=== PATIENT | male | born 1935 | race Caucasian/White ===

== ENCOUNTER 2021-02-05 16:53 | Inpatient (IN) | payer OTHER, MEDICARE ==
[~2021-02-05] VITALS: Ht 180.3 cm; Wt 85.5 kg
[2021-02-05 17:51] LABS: Hematocrit 32.9 % (37.0-53.0); Hemoglobin 9.9 g/dL (13.5-17.5); Mean Corpuscular HGB 28.9 pg (26.0-34.0); Mean Corpuscular HGB Conc 30.1 g/dL (31.5-36.5); Mean Corpuscular Volume 96 fL (80-100); Mean Platelet Volume 11.9 fL (9.1-12.4); Platelet Count 204 K/mm3 (150-400); RDW Coefficient Variation 14.8 % (11.7-14.2); RDW Standard Deviation 52.6 fL (35.1-46.3); Red Blood Cell Count 3.43 M/mm3 (4.30-5.90); White Blood Cell Count 13.77 K/mm3 (4.00-11.30)
[2021-02-05 18:02] LABS: Source, Urine Catheter
[2021-02-05 18:09] LABS: Appearance, Urine Cloudy (Clear); Blood, Urine 5+ (Neg); Color, Urine Brown (P-Yellow); Glucose Qualitative, Urine Neg (Neg); Ketones, Urine 2+ (Neg); Leukocyte Esterase, Urine 2+ (Neg); Nitrite, Urine Pos (Neg); Protein, Urine 2+ (Neg); Specific Gravity, Urine 1.025 (1.003-1.022); Urobilinogen, Urine NORM (Normal)
[2021-02-05 18:09] LABS: International Normalized Ratio 1.2; Prothrombin Time Results 12.7 Sec (9.7-11.5)
[2021-02-05 18:19] LABS: Albumin/Globulin Ratio 0.7 (0.8-1.8); BAND PERCENT MAN 4 % (0-8); BASOPHILS PERCENT MAN 0 % (0-2); Bilirubin, Total 0.2 mg/dL (0.1-1.0); Bun/Creatinine Ratio 11.8 (12.0-20.0); Calcium, Blood 6.6 mg/dL (8.5-10.1); Creatinine, Blood 8.65 mg/dL (0.60-1.20); EOSINOPHILS PERCENT MAN 0 % (0-6); Globulin, Blood 2.8 g/dL (2.2-4.0); LYMPHOCYTES ABSOLUTE MAN 2.06 K/mm3 (0.84-5.20); LYMPHOCYTES PERCENT MAN 15 % (21-46); METAMYELOCYTE ABSOLUTE MAN 0.27 K/mm3 (0.00-0.00); METAMYELOCYTE PERCENT MAN 2 % (0-0); MONOCYTES ABSOLUTE MAN 0.68 K/mm3 (0.16-1.47); MONOCYTES PERCENT MAN 5 % (4-13); NEUTROPHILS ABSOLUTE MAN 10.74 K/mm3 (1.96-9.15); Potassium, Blood 3.2 mmol/L (3.5-5.5); SEG NEUTROPHILS PERCENT MAN 74 % (41-73); TOTAL CELLS COUNTED 100; Total Protein, Blood 4.8 g/dL (6.4-8.2); Troponin I 0.149 ng/mL (0.000-0.040)
[2021-02-05 18:32] LABS: Bilirubin, Urine 1+ (Neg)
[2021-02-05 18:34] LABS: Bacteria Many /hpf
[2021-02-05 18:37] LABS: Amorphous Light (0-Heavy); Squamous Epithelial Cells Rare /hpf (Few)
[2021-02-05] MEDS ORDERED: SITA100T2 PO (19:24)
[2021-02-05] MEDS ORDERED: TAMSULOSIN HCL0.4 M1 PO (19:25)
[2021-02-05 20:19] LABS: PCO2 Arterial 40.8 mmHg (35-45); PO2 Arterial 101 mmHg (80-100); pH Blood Arterial <6.80 (7.35-7.45)
[2021-02-05 20:22] LABS: Anion Gap 32 mmol/L (6-16); Blood Urea Nitrogen 101 mg/dL (8-24); Bun/Creatinine Ratio 11.6 (12.0-20.0); CO2, Blood 4 mmol/L (21-32); Calcium, Blood 6.6 mg/dL (8.5-10.1); Chloride, Blood 114 mmol/L (98-108); Creatinine, Blood 8.67 mg/dL (0.60-1.20); Glomerular Filtration Rate 6 (60-); Glucose, Blood 68 mg/dL (70-99); Phosphorus, Blood 11.8 mg/dL (2.5-4.9); Potassium, Blood 3.2 mmol/L (3.5-5.5); Sodium, Blood 150 mmol/L (136-145)
--- NOTE | 2021-02-05 21:00 | NUR ---
ASSUMED PT CARE FROM ED AT 2034 PT ARRIVED INTUBATED AND ON LIGHT SEDATION. VENT SETTINGS AC 16, VT 500, PEEP 5, FIO2 80%, OXYGEN SATURATIONS 94%. RESP RATE 16. PROPOFOL AT 10MCG/KG/MIN, WHICH WAS TITRATED OFF D/T PT BEING UNRESPONSIVE. LEVOPHED AT 10MCG/MIN WITH SBP 70'S; THEREFORE, TITRATED LEVOPHED UP TO 15MCG/MIN. PT PLACED ON THE HACKLER DOLL WIGS; NSR WITH HR 60'S. BP'S CONTINUED TO TREND DOWN; THEREFORE, LEVOPHED TITRATED UP, WHICH IS CURRENTLY AT MAX OF 30MCG/MIN. ORDERS OBTAINED FOR VASOPRESSIN GTT, ANOTHER LITER OF NS BOLUSED, AND ALBUMIN 25GM FROM DR. CHAO. DR. CHAO AT BEDSIDE SPEAKING WITH WHO CONSENTS TO CENTRAL LINE BEING PLACED. DNR STATUS CONFIRMED BY . OG HAS COFFEE GROUND OUTPUT NOTED TO CANISTER; THEREFORE, PROTONIX GTT INFUSING AT 10MLS/HR. BICARB GTT AT 200ML/HR. ONCE BOLUSES ARE COMPLETE, LR TO BE INFUSING AT 100MLS/HR. PT REMAINS OFF SEDATION AND CONTINUES TO NOT BE RESPONSIVE AT THIS TIME; THEREFORE, RESTRAINTS HAVE NOT BEEN PLACED AT THIS TIME. WILL CONTINUE TO MONITOR.
--- NOTE | 2021-02-05 21:34 | NUR ---
DR. CHAO AT BEDSIDE PLACING CENTRAL LINE ATTEMPTING RIGHT SUBCLAVIAN VEIN AT THIS TIME.
[2021-02-05 21:42] LABS: Albumin, Blood 2.2 g/dL (3.4-5.0); Anion Gap 37 mmol/L (6-16); Blood Urea Nitrogen 129 mg/dL (8-24); Bun/Creatinine Ratio 11.3 (12.0-20.0); CO2, Blood 4 mmol/L (21-32); Chloride, Blood 104 mmol/L (98-108); Glomerular Filtration Rate 5 (60-); Glucose, Blood 87 mg/dL (70-99); Potassium, Blood 4.3 mmol/L (3.5-5.5); Sodium, Blood 145 mmol/L (136-145)
[2021-02-05 21:45] LABS: Influenza A, PCR NEGATIVE (NEGATIVE); Influenza B, PCR NEGATIVE (NEGATIVE); Resp Syncytial Virus, PCR NEGATIVE (NEGATIVE); SARS-Cov-2 (COVID-19) PCR, MMC NEGATIVE (NEGATIVE)
[2021-02-05 21:46] LABS: Calcium, Blood 8.9 mg/dL (8.5-10.1); Phosphorus, Blood 16.1 mg/dL (2.5-4.9)
[2021-02-05] MEDS ORDERED: METF500 PO (21:50)
[2021-02-05] MEDS ORDERED: ZOCOR20 MG PO (21:50)
[2021-02-05] MEDS ORDERED: METO50 PO (21:50)
[2021-02-05] MEDS ORDERED: LISI5 PO (21:50)
[2021-02-05] MEDS ORDERED: CILO100 PO (21:51)
[2021-02-06 00:02] LABS: Albumin, Blood 2.9 g/dL (3.4-5.0); Anion Gap 32 mmol/L (6-16); Blood Urea Nitrogen 117 mg/dL (8-24); Bun/Creatinine Ratio 12.1 (12.0-20.0); CO2, Blood 7 mmol/L (21-32); Chloride, Blood 103 mmol/L (98-108); Creatinine, Blood 9.68 mg/dL (0.60-1.20); Glomerular Filtration Rate 6 (60-); Glucose, Blood 194 mg/dL (70-99); Potassium, Blood 4.5 mmol/L (3.5-5.5); Sodium, Blood 142 mmol/L (136-145); Troponin I 0.971 ng/mL (0.000-0.040)
[2021-02-06 03:39] LABS: Hematocrit 30.9 % (37.0-53.0); Hemoglobin 8.8 g/dL (13.5-17.5); Mean Corpuscular HGB 27.9 pg (26.0-34.0); Mean Corpuscular HGB Conc 28.5 g/dL (31.5-36.5); Mean Corpuscular Volume 98 fL (80-100); Mean Platelet Volume 11.7 fL (9.1-12.4); Platelet Count 151 K/mm3 (150-400); RDW Coefficient Variation 14.8 % (11.7-14.2); RDW Standard Deviation 53.5 fL (35.1-46.3); Red Blood Cell Count 3.15 M/mm3 (4.30-5.90); White Blood Cell Count 11.42 K/mm3 (4.00-11.30)
--- NOTE | 2021-02-06 03:42 | NUR ---
PUSHED EPI D/T SBP 60'S EPI REQUIREMENTS WENT FROM 3MCG/MIN TO 15MCG/MIN WITH A RATE OF 450MLS/HR IN A SHORT AMOUNT OF TIME; THEREFORE, EPI WENT DRY BEFORE PHARMACY WAS ABLE TO SEND ANOTHER BAG AFTER IT WAS REQUESTED. HR 80'S-90'S. SBP 150'S AFTER EPI PUSH GIVEN.
--- NOTE | 2021-02-06 04:25 | NUR ---
REASSESSMENT PT IS CURRENTLY MAXED ON ALL PRESSORS; EPI AT 20MCG/MIN, LEVOPHED AT 30MCG/MIN, AND VASOPRESSIN AT 0.04 UNITS/MIN. PT REMAINS WITH NO URINE OUTPUT. LUNGS ARE BEGINNING TO SOUND WORSE WITH INCREASED CRACKES, AND COARSE RHONCHI. PEEP INCREASED TO 10; HOWEVER, OXYGEN SATURATIONS ARE BACK TO 89%. CALL PLACED TO DR. CHAO WITH ORDERS TO INCREASE PEEP TO 12 AND TO CALL THE WITH AN UPDATE.
--- NOTE | 2021-02-06 04:44 | NUR ---
CALL TO SPOKE WITH AND INFORMED HER THAT PT WASN'T DOING WELL EVEN WITH ALL VASOPRESSORS MAXED OUT. STATED SHE WOULD BE ON HER WAY IN AND BE HERE IN ABOUT 30 MINUTES OR SO.
[2021-02-06 04:53] LABS: Anion Gap 33 mmol/L (6-16); Blood Urea Nitrogen 114 mg/dL (8-24); Bun/Creatinine Ratio 11.9 (12.0-20.0); CO2, Blood 8 mmol/L (21-32); Calcium, Blood 7.4 mg/dL (8.5-10.1); Chloride, Blood 96 mmol/L (98-108); Glomerular Filtration Rate 6 (60-); Glucose, Blood 450 mg/dL (70-99); Phosphorus, Blood 13.6 mg/dL (2.5-4.9); Potassium, Blood 4.5 mmol/L (3.5-5.5); Sodium, Blood 137 mmol/L (136-145)
--- NOTE | 2021-02-06 05:22 | NUR ---
END OF SHIFT SUMMARY HR 80'S; SBP 90'S WITH MAP'S >65 AT THIS TIME. PT REMAINS MAXED ON ALL VASOPRESSORS; EPI, LEVOPHED, AND VASOPRESSIN. VENT SETTINGS REMAIN WITH AC 16, VT 500, PEEP 10, FIO2 100%, RESP RATE 16, OXYGEN SATURATION 87%. PT REMAINS OFF ALL SEDATION AND REMAINS UNRESPONSIVE. PUPILS ARE 4MM AND UNREACTIVE TO LIGHT; NO MOVEMENT. PT REMAINS OUT OF RESTRAINTS. NO URINE OUTPUT. IS AT BEDSIDE AT THIS TIME. WILL CONTINUE TO MONITOR UNTIL REPORT IS HANDED OFF TO ONCOMING RN.
[2021-02-06 05:58] LABS: EOSINOPHILS PERCENT MAN 0 % (0-6); TOTAL CELLS COUNTED 100
--- NOTE | 2021-02-06 06:00 | NUR ---
PASTORAL CARE REQUESTED A MARINE ENGINEERING TECHNICIANS IN ORDER TO READ PT'S LAST RITES. TOÑA WELLER CALLED [facility] IN WHICH THEY WERE WILLING TO HAVE THEIR SKIVER OPERATOR COME IN TO READ LAST RITES. OXYGEN SATURATIONS ARE 80% AT THIS TIME. HR 60-70'S. SBP 60'S.
[2021-02-06 06:04] LABS: BAND PERCENT MAN 10 % (0-8); BASOPHILS ABSOLUTE MAN 0.11 K/mm3 (0.00-0.23); BASOPHILS PERCENT MAN 1 % (0-2); LYMPHOCYTES ABSOLUTE MAN 2.39 K/mm3 (0.84-5.20); LYMPHOCYTES PERCENT MAN 21 % (21-46); MONOCYTES ABSOLUTE MAN 0.22 K/mm3 (0.16-1.47); MONOCYTES PERCENT MAN 2 % (4-13); NEUTROPHILS ABSOLUTE MAN 7.65 K/mm3 (1.96-9.15); SEG NEUTROPHILS PERCENT MAN 57 % (41-73)
[2021-02-06 06:05] LABS: MYELOCYTE ABSOLUTE MAN 1.02 K/mm3 (0.00-0.00); MYELOCYTE PERCENT MAN 9 % (0-0)
--- NOTE | 2021-02-06 06:16 | NUR ---
IS AT BEDSIDE WITH PT AND
--- NOTE | 2021-02-06 06:28 | NUR ---
Spiritual care visit attempted. Upon receiving a call-back from RN Electronic Equipment Maint Tech Nancy, I come into ICU to find that a is already in patient's rm. Spiritual care given by .
--- NOTE | 2021-02-06 07:15 | NUR ---
ASSUMED CARE BEDSIDE REPORT RECIEVED. PT IS INTUBATED, NOT SEDATED. PT IS UNRESPONSIVE WITH NO PURPOSEFUL MOVEMENT. NO COUGH OR GAG NOTED. VENT SETTINGS AC 16, TV 500, PEEP 10, FIO2 100%. PT HR 60'S, SBP 70'S, SPO2 80'S. CENTRAL LINE IN PLACE WITH LEVOPHED AT 30 MCG/MIN AND EPI AT 20 MCG/MIN. SEE FLOW SHEET FOR OTHER GTT TITRATIONS. OGT IN PLACE TO LIS WITH COFFEE GROUND OUTPUT NOTED. SPARKS IN PLACE WITH MINIMAL TO NO URINE OUTPUT NOTED. PT KNEES/LEGS ARE MOTTLED. PT SPOUSE AT BEDSIDE. WILL CONTINUE TO MONITOR.
[2021-02-06 09:00] LABS: Albumin, Blood 2.8 g/dL (3.4-5.0); Anion Gap 35 mmol/L (6-16); Blood Urea Nitrogen 110 mg/dL (8-24); Bun/Creatinine Ratio 12.8 (12.0-20.0); CO2, Blood 6 mmol/L (21-32); Calcium, Blood 6.7 mg/dL (8.5-10.1); Chloride, Blood 89 mmol/L (98-108); Creatinine, Blood 8.62 mg/dL (0.60-1.20); Glomerular Filtration Rate 6 (60-); Glucose, Blood 724 mg/dL (70-99); Phosphorus, Blood 13.2 mg/dL (2.5-4.9); Potassium, Blood 4.5 mmol/L (3.5-5.5); Sodium, Blood 130 mmol/L (136-145)
--- NOTE | 2021-02-06 09:46 | NUR ---
DR ZHANNA CHAO AT BEDSIDE DISCUSSING PT CONDITION WITH PT SPOUSE. PT CONTINUING TO DETERIORATE, LEVOPHED INCREASED TO 40 MCG/MIN. OK TO TITRATE LEVOPHED UP TO 60 MCG/MIN PER DR CHAO. SPO2 73%. PT REMAINS DNR STATUS. WILL CONTINUE TO MONITOR.
--- NOTE | 2021-02-06 10:04 | NUR ---
LEVOPHED LEVOPHED BACK DOWN TO 30 MCG/MIN PER DR CHAO. NOT TO BE TITRATED UP.
[2021-02-06 10:58] LABS: Albumin, Blood 2.6 g/dL (3.4-5.0); Albumin/Globulin Ratio 1.9 (0.8-1.8); Bilirubin, Direct 0.8 mg/dL (0.0-0.3); Bilirubin, Indirect 0.4 mg/dL (0.1-0.7); Bilirubin, Total 1.2 mg/dL (0.1-1.0); Globulin, Blood 1.4 g/dL (2.2-4.0)
--- NOTE | 2021-02-06 11:17 | NUR ---
FAMILY UPDATE PT SPOUSE PLANS TO TRANSITION PT TO COMFORT CARE THIS AFTERNOON AFTER OTHER FAMILY MEMBERS GET TO TOWN TO SEE PT. WILL CONTINUE CURRENT COURSE OF TREATMENT UNTIL PT SPOUSE DECIDEDS TO TRANSITION TO COMFORT CARE. DR CHAO UPDATED.
--- NOTE | 2021-02-06 12:42 | NUR ---
TIME OF PT WITH RAPID DECLINE IN HR LEADING TO PEA. PT SPOUSE AT BEDSIDE UPDATED THROUGHOUT DECLINE IN HR AND LOSS OF BP. PT WITHOUT PALPABLE PULSE. NO HEART TONES AUSCULTATED. TIME OF 1239. PT SPOUSE REMAINS AT BEDSIDE. DR CHAO UPDATED.
[2021-02-06 12:44] LABS: Glucose, Blood 902 mg/dL (70-99)
[2021-02-06 13:03] LABS: Albumin, Blood 2.4 g/dL (3.4-5.0); Anion Gap 34 mmol/L (6-16); Blood Urea Nitrogen 107 mg/dL (8-24); Bun/Creatinine Ratio 11.9 (12.0-20.0); CO2, Blood 9 mmol/L (21-32); Calcium, Blood 6.4 mg/dL (8.5-10.1); Chloride, Blood 83 mmol/L (98-108); Glomerular Filtration Rate 6 (60-); Glucose, Blood 861 mg/dL (70-99); Phosphorus, Blood 12.4 mg/dL (2.5-4.9); Potassium, Blood 4.4 mmol/L (3.5-5.5); Sodium, Blood 126 mmol/L (136-145)
--- NOTE | 2021-02-06 13:08 | NUR ---
echocardiogram complete
== END 2021-02-06 12:39 | DRG 871 ==
LOC: ER 16:53 → ICUW 20:32 → ICUE 20:32
PROVIDERS: Emergency Medicine; Internal Medicine; Internal Medicine Critical Care Medicine; ADMIT Family Medicine
PROC: 0BH18EZ Insertion of Endotracheal Airway into Trachea, Via Natural or Artificial Opening Endoscopic (ICD-10-PCS; principal; 2021-02-05)
PROC: 5A12012 Performance of Cardiac Output, Single, Manual (ICD-10-PCS; 2021-02-05)
PROC: 3E033XZ Introduction of Vasopressor into Peripheral Vein, Percutaneous Approach (ICD-10-PCS; 2021-02-05)
PROC: 05HM33Z Insertion of Infusion Device into Right Internal Jugular Vein, Percutaneous Approach (ICD-10-PCS; 2021-02-05)
PROC: 5A1935Z Respiratory Ventilation, Less than 24 Consecutive Hours (ICD-10-PCS; 2021-02-05)
DX: A41.9 Sepsis, unspecified organism (principal); R65.21 Severe sepsis with septic shock; J69.0 Pneumonitis due to inhalation of food and vomit; G92 Toxic encephalopathy; R40.20 Unspecified coma; J96.01 Acute respiratory failure with hypoxia; N39.0 Urinary tract infection, site not specified; N17.9 Acute kidney failure, unspecified; G93.1 Anoxic brain damage, not elsewhere classified; E87.2 Acidosis; E87.0 Hyperosmolality and hypernatremia; Z20.822 Contact with and (suspected) exposure to COVID-19; Z66 Do not resuscitate; I46.8 Cardiac arrest due to other underlying condition; I25.10 Atherosclerotic heart disease of native coronary artery without angina pectoris; E78.00 Pure hypercholesterolemia, unspecified; R19.7 Diarrhea, unspecified; E86.0 Dehydration; E87.6 Hypokalemia; E11.649 Type 2 diabetes mellitus with hypoglycemia without coma; D64.9 Anemia, unspecified; Z91.81 History of falling; E83.51 Hypocalcemia; Z95.1 Presence of aortocoronary bypass graft; Z87.891 Personal history of nicotine dependence; Z79.84 Long term (current) use of oral hypoglycemic drugs; Z79.899 Other long term (current) drug therapy; W18.39XA Other fall on same level, initial encounter
CPT/HCPCS: 0241U; 31500; 36415; 36556; 36600; 51702; 70450; 71045; 72125; 76770; 80053; 80069; 80076; 81001; 82550; 82803; 82947; 83605; 83690; 84484; 85025; 85610; 85730; 87040; 87086; 93005; 93010; 93306; 94002; 96361; 96365; 96368; 96375; 99285-25; C1751; C9113; J0171; J0610; J0692; J1815; J2704; J3370; J7030; J7040; J7050; J7060; J7070; J7120; P9046